=== PATIENT | female | born 1955 | race Caucasian/White ===

== ENCOUNTER 2016-08-10 07:42 | Emergency (ER) | payer OTHER ==
[2016-08-10 07:57] VITALS: PULSE 77; RESP 20; TEMP 98.8
[2016-08-10] MEDS ORDERED: IPRATROPIUM/ALBUTEROL 3 ML DEYVIAL IH ONE ×2 (08:04→08:17)
--- NOTE | 2016-08-10 08:05 | UCPHY ---
H & P Time Seen by Provider: 08/10/16 07:46 Patient Type: Established HPI/ROS: This patient presents chief complaint of a cough which she has had that intermittently for approximately 6 weeks but over the past 2 or 3 days in his been much worse. She has had chest pain only when coughing but does feel that she is short of breath and has been wheezing. Her only other symptom is a runny nose although earlier it was more congested. She denies fever, sore throat, ear pain, headache or myalgias. Smoking Status: Never smoked Physical Exam: This is a well-developed well-nourished female who is in no acute distress. She is alert, appropriate and has normal mental status. GENERAL: Well-appearing, well-nourished and in no acute distress. HEAD: Atraumatic, normocephalic. EYES: sclera anicteric, conjunctiva are normal. ENT: TMs normal, nares patent, oropharynx clear without exudates. Moist mucous membranes. NECK: Normal range of motion, supple without lymphadenopathy or JVD. LUNGS: The patient is in no respiratory distress but there are expiratory wheezes present and also the expiratory phase of respiration is prolonged. Rhonchi are also present. HEART: Regular rate and rhythm EXTREMITIES: Normal range of motion, NEUROLOGICAL: Cranial nerves II through XII grossly intact. Normal speech, normal gait. PSYCH: Normal mood, normal affect. SKIN: Warm, dry, normal turgor, no visible rashes or lesions. Constitutional: Initial Vital Signs Temperature (C) 37.1 C 08/10/16 07:53 Heart Rate 77 08/10/16 07:53 Respiratory Rate 20 08/10/16 07:53 Blood Pressure 115/67 08/10/16 07:53 O2 Sat (%) 95 08/10/16 07:53 O2 Delivery Mode Room Air Allergies/Adverse Reactions: No Known Allergies Allergy (Verified 11/20/13 08:12) Home Medications: Medication Instructions Recorded Albuterol [Albuterol HFA 8 gm] 2 puffs IH QID #1 mdi 08/10/16 predniSONE 20 mg PO DAILY #10 tab 08/10/16 Medical Decision Making ED Course/Re-evaluation: The patient was given a DuoNeb in afterwards felt that her breathing was easier but the cough continued. Re-examination revealed continued rhonchi and wheezes. The DuoNeb was repeated and the patient was given 60 mg of prednisone orally after which she was feeling generally improved although tremulous. Re- examination reveals significant edema increase in the wheezing however the rhonchi persisted. Differential Diagnosis: I believe that this patient has acute bronchitis and that antibiotics are not indicated at this time. I feel that the continued use of albuterol associated with the prednisone should help this patient considerably. I find no evidence of pneumonia or other bacterial illness. - Data Points Medications Given: Discontinued Medications Albuterol/Ipratropium (Duoneb) 3 ml IH EDNOW ONE Stop: 08/10/16 08:05 Last Admin: 08/10/16 08:10 Dose: 3 ml Albuterol/Ipratropium (Duoneb) 3 ml IH EDNOW ONE Stop: 08/10/16 08:18 Last Admin: 08/10/16 08:25 Dose: 3 ml Prednisone (Prednisone) 60 mg PO EDNOW ONE Stop: 08/10/16 08:18 Last Admin: 08/10/16 08:23 Dose: 60 mg Departure - Departure Disposition: Home, Routine, Self-Care Clinical Impression: Acute bronchiolitis with bronchospasm Condition: Good Instructions: Acute Bronchitis (ED), How to Use a Nebulizer (ED), Bronchospasm (ED) Additional Instructions: If your symptoms have not improved in 4 or 5 days you should be re-evaluated. If the breathing becomes worse you should be seen right away. Fever would be cause for concern. Adult Pain & Fever Control: We recommend Acetaminophen (Tylenol) and Ibuprofen (Motrin, Advil) for pain and fever control. When fever is high or pain severe, both drugs can be used at the same time, but at different intervals. Please note the time differences. Your dose is: Acetaminophen [650]mg every 4 to 6 hours ibuprofen [600]mg every [6] hours with food OR naproxen Sodium (Aleve) [440]mg every 12 hours. Note: do not take Acetaminophen with Hydrocodone (Vicodin, Lortab) or Oxycodone (Percocet). These medications also contain Acetaminophen. No more than 3000 mg of Acetaminophen should be taken in 24 hours (for an adult) . The maximal dose of ibuprofen that it is safe in a 24-hour period is 2400 mg. You may take 400 mg every 4 hours, 600 mg every 6 hours or 800 mg every 8 hours safely. Try a nasal decongestant spray such as Afrin. Referrals: Abbey Perez MD [Primary Care Provider] - As per Instructions Prescriptions: Albuterol [Albuterol HFA 8 gm] 2 puffs IH QID #1 mdi predniSONE 20 mg PO DAILY #10 tab - PQRS PQRS Measurement: Not applicable
[2016-08-10] MEDS ORDERED: predniSONE 20 MG TAB PO ONE (08:17)
[2016-08-10 08:43] VITALS: BP 114/70; O2SAT 98
== END 2016-08-10 08:45 | disposition home or self-care (01) ==
LOC: CED 07:42
DX: J20.9 Acute bronchitis, unspecified (principal)
CPT/HCPCS: 99214-PO; G0463-PO

== ENCOUNTER → 2017-01-14 | Outpatient (CLI) | payer OTHER | LOC: FIMAGING 08:57 | PROVIDERS: ATTEND Family Medicine | DX: Z12.31 Encounter for screening mammogram for malignant neoplasm of breast (principal) | CPT/HCPCS: G0202 ==

== ENCOUNTER 2017-10-13 07:43 | Inpatient (IN) | payer OTHER ==
[~2017-10-13 07:43] MED LIST: BUPI/epINEPH/KETOROLAC IU ONE; NS IV ONE; POVIDONE-IODINE 20 ML in SODIUM CL IRRIG SOLUTION 500 ML IRR ONE; ROPIVACAINE 0.2% 80 MG, EPINEPHrine 0.2 MG, KETOROLAC TROMETHAMINE 30 MG in SYRINGE 0 ML IU ONE; TRANEXAMIC ACID IV ONE
[2017-10-13] MEDS ORDERED: DEXAMETHASONE 4 MG/ML VIAL IVP ONE (07:51)
[2017-10-13] MEDS ORDERED: ACETAMINOPHEN 325 MG TAB PO ONE (07:51)
[2017-10-13] MEDS ORDERED: ONDANSETRON 4 MG/2 ML VIAL IVP ONE (07:51)
[2017-10-13] MEDS ORDERED: GABAPENTIN 300 MG CAP PO ONE (07:51)
[2017-10-13] MEDS ORDERED: FAMOTIDINE 20 MG TAB PO ONE (07:51)
[2017-10-13] MEDS ORDERED: ceFAZolin 2 GM/SWFI 2 GM/20 ML SYR IVP ONE (07:51)
[2017-10-13] MEDS ORDERED: LIDOCAINE 1% 2 ML INJ ID PRN (07:52)
[2017-10-13] MEDS ORDERED: LR 1,000 ML IV ONE (07:52)
--- NOTE | 2017-10-13 08:56 | PDHPUP ---
History & Physical Update H&P update statement: This history and physical update is based on an assessment of the patient which was completed after admission or registration (within 24 hours), but prior to the surgery/procedure. H&P update: H&P reviewed & patient examined
[2017-10-13] MEDS ORDERED: ceFAZolin 1 GM/5 ML SYR ONE (09:17)
[2017-10-13] MEDS ORDERED: MIDAZOLAM 2 MG/2 ML VIAL ONE (09:27)
[2017-10-13] MEDS ORDERED: MIDAZOLAM 2 MG/2 ML VIAL IVP ONE (09:27)
[2017-10-13] MEDS ORDERED: HYDROmorphONE/DILAUDID 1 MG/ML INJ IVP PRN (09:28)
[2017-10-13] MEDS ORDERED: NALOXONE HCL 0.4 MG/ML INJ IVP PRN (09:28)
[2017-10-13] MEDS ORDERED: HYDROCODONE/APAP 5/325 TAB PO PRN (09:28)
[2017-10-13] MEDS ORDERED: ONDANSETRON 4 MG/2 ML VIAL IVP PRN ×2 (09:28→11:10)
[2017-10-13] MEDS ORDERED: OXYCODONE/APAP 5/325 TAB PO PRN (09:28)
[2017-10-13] MEDS ORDERED: fentaNYL 100 MCG/2 ML INJ IVP PRN (09:28)
[2017-10-13] MEDS ORDERED: ALBUTEROL 3 ML DEYVIAL IH PRN (09:28)
[2017-10-13] MEDS ORDERED: ACETAMINOPHEN 500 MG TAB PO PRN (09:28)
[2017-10-13] MEDS ORDERED: DEXAMETHASONE 4 MG/ML VIAL IVP PRN (09:28)
[2017-10-13] MEDS ORDERED: PROPOFOL/EMULSION 500 MG/50 ML BOTTLE IV ONE (09:30)
[2017-10-13] MEDS ORDERED: PROPOFOL 200 MG/20 ML VIAL ONE (09:45)
[2017-10-13] MEDS ORDERED: fentaNYL 100 MCG/2 ML INJ ONE (10:04)
--- NOTE | 2017-10-13 10:55 | POSTOPPROG ---
Post Op Note Date of Operation: 10/13/17 Surgeon: Rodrigo Berger Pairer Substandard: Rafael Anesthesiologist: Ramandeep Anesthesia: IV Sedation, Spinal Post-op Diagnosis: Left hip arthritis Procedure: Left total hip arthroplasty Inf/Abcess present in the surg proc area at time of surgery?: No EBL: 100-500
[2017-10-13] MEDS ORDERED: POLYETHYLENE GLYCOL 3350 17 GM PKT PO PRN (11:10)
[2017-10-13] MEDS ORDERED: PROMETHAZINE HCL 25 MG/ML INJ IVP PRN (11:10)
[2017-10-13] MEDS ORDERED: DIPHENOXYLATE/ATROPINE LOMOTIL 1 TAB PO PRN (11:10)
[2017-10-13] MEDS ORDERED: traMADol 50 MG TAB PO PRN (11:10)
[2017-10-13] MEDS ORDERED: BISACODYL 10 MG SUPP PR PRN (11:10)
[2017-10-13] MEDS ORDERED: MAGNESIUM HYDROXIDE 30 ML UDCUP PO PRN (11:10)
[2017-10-13] MEDS ORDERED: METOCLOPRAMIDE 10 MG/2 ML VIAL IVP PRN (11:10)
[2017-10-13] MEDS ORDERED: LACTULOSE 20 GM/30 ML UDCUP PO PRN (11:10)
[2017-10-13] MEDS ORDERED: TEMAZEPAM 15 MG CAP PO PRN (11:10)
[2017-10-13] MEDS ORDERED: PROMETHAZINE HCL 25 MG SUPPR PR PRN (11:10)
[2017-10-13] MEDS ORDERED: oxyCODONE IR 5 MG TAB PO PRN (11:10)
[2017-10-13] MEDS ORDERED: KETOROLAC 30 MG/1 ML SDV IVP PRN (11:10)
[2017-10-13] MEDS ORDERED: ONDANSETRON DISINTEGRATING 4 MG TAB PO PRN (11:10)
[2017-10-13] MEDS ORDERED: NS 500 ML IV PRN (11:10)
[2017-10-13] MEDS ORDERED: CYCLOBENZAPRINE 10 MG TAB PO PRN (11:10)
[2017-10-13] MEDS ORDERED: diphenhydrAMINE 25 MG CAP PO PRN (11:10)
--- NOTE | 2017-10-13 11:14 | POSTANESTH ---
Post Anesthetic Evaluation Cardiovascular Status: Normal, Stable Respiratory Status: Normal, Stable Level of Consciousness/Mental Status: Mildly Sleepy, Arousable Pain Control: Adequate, Prn Tx Ordered Nausea/Vomiting Control: Adequate, Prn Tx Ordered Complications Possibly Related to Anesthesia: None Noted
--- NOTE | 2017-10-13 11:15 | PDANEPAE ---
ANE History of Present Illness Left JAGRUTI ANE Past Medical History - Cardiovascular History Hx Hypertension: No Hx Arrhythmias: No Hx Chest Pain: No Hx Coronary Artery / Peripheral Vascular Disease: No Hx CHF / Valvular Disease: No Hx Palpitations: No - Pulmonary History Hx COPD: No Hx Asthma/Reactive Airway Disease: No Hx Recent Upper Respiratory Infection: No Hx Oxygen in Use at Home: No Hx Sleep Apnea: No Sleep Apnea Screening Result - Last Documented: Negative Pulmonary History Comment: EXERCISE INDUCED ASTHMA DOES NOT CURRENTLY USE INHALER - Neurologic History Hx Cerebrovascular Accident: No Hx Seizures: No Hx Dementia: No - Endocrine History Hx Diabetes: No - Renal History Hx Renal Disorders: No - Liver History Hx Hepatic Disorders: No - Neurological & Psychiatric Hx Hx Neurological and Psychiatric Disorders: No - Cancer History Hx Cancer: No - Congenital Disorder History Hx Congenital Disorders: No - GI History Hx Gastrointestinal Disorders: No - Other Health History Other Health History: OSTEOARTHRITIS - Chronic Pain History Chronic Pain: Yes (LT HIP) - Surgical History Prior Surgeries: ROSI BREAST AUGMENTATION ANE Review of Systems Review of Systems: - Exercise capacity METS (RN): 6 METS ANE Patient History - Allergies Allergies/Adverse Reactions: No Known Allergies Allergy (Verified 11/20/13 08:12) - Home Medications Home Medications: Herbals/Supplements -Info Only DAILY 09/24/17 [Last Taken 1 Week Ago ~10/06/17] Ibuprofen PRN 09/24/17 [Last Taken 2 Weeks Ago ~09/29/17] - NPO status NPO Since - Liquids (Date): 10/13/17 NPO Since - Liquids (Time): 05:30 NPO Since - Solids (Date): 10/12/17 NPO Since - Solids (Time): 18:30 - Smoking Hx Smoking Status: Never smoked ANE Labs/Vital Signs - Vital Signs Blood Pressure: 118/85 Heart Rate: 67 Respiratory Rate: 14 O2 Sat (%): 97 Height: 172.72 cm Weight: 62.596 kg ANE Physical Exam - Airway Neck exam: FROM Mallampati Score: Class 2 Mouth exam: normal dental/mouth exam - Pulmonary Pulmonary: clear to auscultation - Cardiovascular Cardiovascular: regular rate and rhythym - ASA Status ASA Status: I ANE Anesthesia Plan Anesthesia Plan: GA w LMA
[2017-10-13] MEDS ORDERED: LR 1,000 ML IV SCH (11:30)
--- NOTE | 2017-10-13 11:49 | GOP ---
[f rep st] OPERATIVE REPORT DATE OF OPERATION: 10/13/2017 SURGEON: Rodrigo Berger MD UNDERCOLLAR MAKER: 1. Filipe Hansen CFA. 2. All Barbour, PAC. ANESTHESIA: A combination of Marcaine, spinal, and IV sedation. ANESTHESIOLOGIST: Matthew Sabillon DO. PREOPERATIVE DIAGNOSIS: Left hip severe degenerative arthritis. POSTOPERATIVE DIAGNOSIS: Left hip severe degenerative arthritis. PROCEDURE PERFORMED: Left total hip arthroplasty, ceramic femoral head on highly cross-linked polyet hylene cup liner. FINDINGS: ESTIMATED BLOOD LOSS: About 300 mL. The sponge and needle count were correct on 2 occasions. I used a Central Tritanium hemispherical solid-backed acetabular shell with an outside diameter of 52 mm. The liner was a 10-degree lipped Isaias X3 highly cross-linked liner with an inside diameter o f 32 mm. The femoral component was a high offset Accolade II stem in a size 5 and press-fit. The fe moral head was a Isaias Biolox Delta ceramic head with a +4 mm neck length and a [address] Filipe Hansen and Kendrick Barbour acted as surgical assistants. Their assistance was a medical necess ity for safe completion of the procedure. DESCRIPTION OF PROCEDURE: The patient was given 2 g of IV Ancef preoperatively within 60 minutes of surgery. She also received IV tranexamic acid at a dose of 20 mg/kg. She was placed on the operatin g room table and given spinal anesthesia with Marcaine by Dr. Sabillon. She was then placed supine and given IV sedation. A Billingsley catheter was not used. She wore a TAMIA stocking and SCD on the nonoperati ve leg. She was rolled to the right lateral decubitus position. The position was secured with the p egboard table attachment. I used an axillary roll and all pressure points were carefully padded. I was careful to lock her pelvis in a rigid vertical position. Her perineum was isolated with plastic adhesive drapes. Her left hip and left lower extremity were prepped with ChloraPrep. They were drap ed free using sterile sheets, stockinette, and Ioban plastic adhesive drapes. The World Health Organization time-out was performed to verify the correct surgical side and site and the correct patient identity. The Bishop time-out was also performed. I made a 4- to 4-1/2-inch straight oblique posterolateral hip skin incision. The subcutaneous tissue s were sharply divided, and hemostasis was obtained using electrocautery. The fascia che was identi fied and split along the axis of its fibers. I curved posteriorly and proximally, and split the fasc ia of gluteus lorrie, and bluntly split the muscle fibers in line with their orientation. The Mónica pineda self-retaining retractor was inserted. Her sciatic nerve was located, partially exposed, and pro tected throughout the procedure. The external rotators and the posterior hip capsule were divided as separate layers at the base of the femoral neck, tagged, and reflected posteriorly. A smooth 1/8-in ch Steinmann pin was inserted vertically into the ilium, superior to the acetabulum. A 1/8-inch dril l bit was inserted vertically into the greater trochanter and parallel to the first pin. The distanc e between the 2 was measured for leg length reference. Her femoral head was dislocated posteriorly. Severe degenerative changes were present on the femoral head. Her femoral neck was osteotomized at the appropriate level and inclination. I was careful to preserve all the posterior capsule and most of the anterior capsule. The remnant of her damaged labrum was excised. I prepared the femur first. This allowed me to food products tester the amount of natural femoral neck anteversion. This, in turn, allowed me to later determine the correct amount of cup anteversion. She had approx imately 12 to 15 degrees of natural femoral neck anteversion. The canal was opened laterally with a box chisel. I used the power starter reamer and then hand broached sequentially up to a size 5 Accol evon II stem. The size 5 broach was used as a trial stem. I was careful to lateralize adequately. Appropriate retractors were inserted to expose the acetabulum. The acetabulum was reamed sequentiall y up to 51 mm. I selected a 52 mm Isaias Tritanium solid-backed hemispherical shell. This was yamila ed securely into place in a proper degree of inclination and anteversion. I used the transverse acet abular ligament and other acetabular bony landmarks to help me properly orient the cup. I did not th ink supplemental screw fixation was necessary. I inserted a screw-in metal dome hole plug. I performed a series of trial reductions to determine length and stability. I concluded that the siz e 5 high offset stem with a +4 mm neck and a 32 mm head with a 10-degree lipped liner gave me the pro per combination of appropriate length and good anterior and posterior stability. The 10-degree lipped Central X3 highly cross-linked liner was inserted and tapped securely into place . The Isaias Accolade II stem and high offset in size 5 was inserted press-fit and was very tight. I did one final trial reduction and confirmed that the +4 mm neck length with a 32 mm head was the p lizandro combination. The Central Biolox Delta ceramic head with an outside diameter 32 mm and a neck l ength of +4 mm was tapped securely onto the clean trunnion. The acetabulum was irrigated and cleaned , and the hip was reduced one final time. She had excellent anterior and posterior stability and mar ropriate length. 40 mL of the joint anesthetic cocktail was injected into the capsule, the deep musculature, and the s ubcutaneous tissues along the skin edges. The joint was thoroughly irrigated one final time with a d ilute Betadine solution. Her sciatic nerve was reinspected and looked unharmed. The external rotato rs and the posterior hip capsule were repaired in separate layers with #2 FiberWire sutures through d rill holes in the greater trochanter. The fascia che was closed first with 2 [id number] #2 Fib erWire sutures, followed by a running #2 barbed Ethicon Stratafix PDO suture. The subcutaneous tissu es were closed with a running 0 barbed Ethicon Stratafix Monoderm suture. The skin was closed with a running 3-0 barbed Ethicon Stratafix Monoderm subcuticular suture. The skin edges were reapproximat ed and sealed with Dermabond glue. The wound was covered with a large piece of Mepilex waterproof dr ceja. The Mepilex sacral dressing was reapplied at the end of the procedure. A long-leg TAMIA stocking and SCD were applied to her left lower extremity. She wore a stocking and SC D on the opposite leg during the procedure. An abduction pillow was placed between her knees. She w as awakened from anesthesia and rolled to the supine position on her [facility]. She was taken to PACU in satisfactory condition. There were no recognized intraoperative complications. /[id number]/MODL
[2017-10-13 13:00] VITALS: RESP 16
--- NOTE | 2017-10-13 13:03 | PDMN ---
Medical Necessity Medical necessity: S560 hip arthroplasty A-3 days INPT only list : L JAGRUTI
[2017-10-13] MEDS: ACETAMINOPHEN 325 MG TAB PO SCH ×3 (13:24→23:29)
[2017-10-13] MEDS ORDERED: ceFAZolin 2 GM/DEXTROSE 100 ML IV SCH (14:00)
[2017-10-13] MEDS: ceFAZolin 2 GM/SWFI 2 GM/20 ML SYR IVP SCH (18:00)
[2017-10-13] MEDS: TRANEXAMIC ACID 650 MG TAB PO SCH (18:00)
[2017-10-13] MEDS: ASPIRIN 325 MG TAB PO SCH (21:47)
[2017-10-13] MEDS: FAMOTIDINE 20 MG TAB PO SCH (21:47)
[2017-10-13] MEDS: SENNOSIDES/DOCUSATE SODIUM TAB PO SCH (23:50)
[2017-10-14] MEDS: TRANEXAMIC ACID 650 MG TAB PO SCH ×2 (02:12→08:19)
[2017-10-14] MEDS: ceFAZolin 2 GM/SWFI 2 GM/20 ML SYR IVP SCH (02:12)
[2017-10-14 04:54] VITALS: O2SAT 95
[2017-10-14] MEDS: ACETAMINOPHEN 325 MG TAB PO SCH (05:16)
--- NOTE | 2017-10-14 07:29 | SOAPPROG ---
SOAP Progress Note Assessment/Plan: Assessment: Afebrile. Awake and alert. Min pain. Up and walking in room. Dsg is dry. H/H is good. Sciatic intact. Films look good. Plan: Up with PT. DC today. OP PT 10/14/17 07:28 Objective: Vital Signs Temp Pulse Resp BP Pulse Ox 36.9 C 69 16 94/60 L 95 10/14/17 04:00 10/14/17 05:17 10/14/17 04:00 10/14/17 05:17 10/14/17 04:00 Laboratory Results 10/14/17 05:32 10/13/17 10/14/17 10/15/17 05:59 05:59 05:59 Intake Total 1345 Output Total 2450 Balance -1105 ICD10 Worksheet Patient Problems: Problems Problem Status Onset Osteoarthritis of left hip Acute
[2017-10-14 07:44] VITALS: BP 104/59; PULSE 63; TEMP 98.3
--- NOTE | 2017-10-14 07:49 | GDS ---
[f rep st] DISCHARGE SUMMARY ADMISSION DIAGNOSIS: Left hip severe degenerative arthritis. DISCHARGE DIAGNOSIS: Left hip severe degenerative arthritis. OPERATION PERFORMED: 10/13/2017, a left total hip arthroplasty, ceramic femoral head on highly cross -linked polyethylene cup liner. POSTOPERATIVE COMPLICATIONS: None. CONDITION ON DISCHARGE: Improved. DESCRIPTION OF HOSPITAL COURSE: The patient was admitted to the hospital on the morning of surgery. Her admission CBC was normal. The same day, under a combination of Marcaine, spinal, and IV sedatio n, she underwent a left total hip arthroplasty. Postoperatively, she was treated with multimodal DVT prophylaxis, including aspirin. On the first postoperative day, her hemoglobin and hematocrit were 10.8 and 31.7. She was seen by Physical Therapy and made rapid progress with ambulation and stairs. By the time of discharge, she was afebrile, her wound was dry and she was independent walking with a walker. DISPOSITION: The patient discharged to her home. Her daughter will be staying with her for assistan . She may progress to full weightbearing on the left as tolerated. Use TAMIA stockings for 1 week. Use an abduction pillow in bed for 3 weeks. Continue aspirin 325 mg p.o. daily for 21 days. Contin ue Celebrex for 21 days. She will go to outpatient physical therapy in my office next week. I will see her back in the office on November 04, 2017. If there are any problems, she is to call me at the off ice. /[id number]/MODL
[2017-10-14] MEDS: ASPIRIN 325 MG TAB PO SCH (08:18)
[2017-10-14] MEDS: FAMOTIDINE 20 MG TAB PO SCH (08:18)
[2017-10-14] MEDS: SENNOSIDES/DOCUSATE SODIUM TAB PO SCH (08:19)
--- NOTE | 2017-10-14 11:02 | ASDISCHSUM ---
Discharge Information Plan Status:Home with No Needs Medically Cleared to Leave: Discharge Date:10/14/2017 10:37 AM CM D/C Disposition: ADT D/C Disposition:Home, Routine, Self-Care Projected Discharge Date:10/14/2017 10:37 AM Transportation at D/C: Discharge Delay Reason: Follow-Up Date:10/14/2017 10:37 AM Discharge Slot: Final Diagnosis: Placement Information Patient Contact Information Contact Name:FACUNDO Relationship:Daughter Address: Work Phone: City: [facility] Phone: State/[place] Code: Email: Financial Information Financial Class:HMO and PPO Plans Primary Plan Desc:[employer] Primary Plan Number:[id number] Secondary Plan Desc: Secondary Plan Number: Assessment Information [facility] CM Progress Note CM Note CM Note Notes: Pt s/p L JAGRUTI, PT rec [facility]. Pt to follow up with outpatient PT per MD rec. Pt dghtr to stay w her for several days after d/c. Pt medically stable for d/c. No CM d/c needs identified. Date Signed: 10/14/2017 11:01 AM Electronically Signed By:SHIELA Sanders Intervention Information
== END 2017-10-14 10:37 | disposition home or self-care (01) | DRG 470 ==
LOC: F3N 07:43
PROVIDERS: ADMIT Orthopaedic Surgery; ATTEND Orthopaedic Surgery
PROC: 0SRB04A Replacement of Left Hip Joint with Ceramic on Polyethylene Synthetic Substitute, Uncemented, Open Approach (ICD-10-PCS; principal; 2017-10-13 09:15)
DX: M16.12 Unilateral primary osteoarthritis, left hip (principal)
CPT/HCPCS: 97116-GP; 97161-GP; 97165-GO; J0171; J0690; J1100; J1885; J2250; J2405; J2704; J3010

== ENCOUNTER 2017-11-02 09:01 | Observation (INO) | payer OTHER ==
--- NOTE | 2017-11-01 12:08 | GHP ---
[f rep st] PREOP HISTORY AND PHYSICAL Dr. Berger dictating the preoperative admission history and physical on this patient. It is really an H and P update. She will be in outpatient on Wednesday. PROBLEM: Status post left total hip arthroplasty with 1 dislocation. HISTORY OF PRESENT ILLNESS: The patient is a 62-year-old woman admitted for a revision of the acetabular component of her left total hip arthroplasty. I did her original total hip replacement on October 13, 2017. On October 23, while sitting, she sustained a posterior dislocation. She is admitted for revision of the acetabular component. MEDICAL HISTORY: Overall, she is in excellent general health. CURRENT MEDICATIONS: None. DRUG ALLERGIES: None. PHYSICAL EXAMINATION: HEART: Regular rhythm. No murmurs. LUNGS: Clear. EXTREMITIES: Pertinent findings limited to her left hip. Her wound is healed. No residual swelling. There has not been any other change in her health in the last 2 weeks. For other details, please refer to her original admission history and physical from October 13, 2017. The surgery has been described to her. I am going to revise her acetabular component and add a little more anteversion. I am also going to use a slightly longer femoral neck. The surgery has been described to her, including the risks, complications, expectations, and recovery time. She understands that there is a small risk of dislocation, infection, and sciatic nerve injury. She also understands that the surgery may not last the rest of her life and she might require revision surgery in the future. All her questions have been answered, and she consents to surgery. /[id number]/MODL MTDD
[~2017-11-02 09:01] MED LIST changes: +ceFAZolin 1 GM/5 ML SYR ONE
[2017-11-02] MEDS ORDERED: ceFAZolin 2 GM/SWFI 2 GM/20 ML SYR IVP ONE (09:19)
[2017-11-02] MEDS ORDERED: ONDANSETRON 4 MG/2 ML VIAL IVP ONE (09:19)
[2017-11-02] MEDS ORDERED: FAMOTIDINE 20 MG TAB PO ONE (09:19)
[2017-11-02] MEDS ORDERED: ACETAMINOPHEN 325 MG TAB PO ONE (09:19)
[2017-11-02] MEDS ORDERED: GABAPENTIN 300 MG CAP PO ONE (09:19)
[2017-11-02] MEDS ORDERED: DEXAMETHASONE 4 MG/ML VIAL IVP ONE (09:19)
[2017-11-02] MEDS ORDERED: LIDOCAINE 1% 2 ML INJ ID PRN (09:20)
[2017-11-02] MEDS ORDERED: LR 1,000 ML IV ONE (09:20)
[2017-11-02] MEDS ORDERED: MIDAZOLAM 2 MG/2 ML VIAL IVP ONE (10:14)
[2017-11-02] MEDS ORDERED: MIDAZOLAM 2 MG/2 ML VIAL ONE (10:14)
--- NOTE | 2017-11-02 10:16 | PDANEPAE ---
ANE History of Present Illness s/p JAGRUTI now for revision secondary to dislocation ANE Past Medical History - Cardiovascular History Hx Hypertension: No Hx Arrhythmias: No Hx Chest Pain: No Hx Coronary Artery / Peripheral Vascular Disease: No Hx CHF / Valvular Disease: No Hx Palpitations: No - Pulmonary History Hx COPD: No Hx Asthma/Reactive Airway Disease: No Hx Recent Upper Respiratory Infection: No Hx Oxygen in Use at Home: No Hx Sleep Apnea: No Sleep Apnea Screening Result - Last Documented: Negative Pulmonary History Comment: EXERCISE INDUCED ASTHMA DOES NOT CURRENTLY USE INHALER - Neurologic History Hx Cerebrovascular Accident: No Hx Seizures: No Hx Dementia: No - Endocrine History Hx Diabetes: No - Renal History Hx Renal Disorders: No - Liver History Hx Hepatic Disorders: No - Neurological & Psychiatric Hx Hx Neurological and Psychiatric Disorders: No - Cancer History Hx Cancer: No - Congenital Disorder History Hx Congenital Disorders: No - GI History Hx Gastrointestinal Disorders: No - Other Health History Other Health History: OSTEOARTHRITIS - Chronic Pain History Chronic Pain: Yes (LT HIP) - Surgical History Prior Surgeries: L JAGRUTI 2018. ROSI BREAST AUGMENTATION ANE Review of Systems Review of Systems: - Exercise capacity METS (RN): 5 METS ANE Patient History - Allergies Allergies/Adverse Reactions: No Known Allergies Allergy (Verified 11/20/13 08:12) - Home Medications Home medications: home medication list seen and reviewed Home Medications: Herbals/Supplements -Info Only 1 ea PO DAILY 09/24/17 [Last Taken 3 Weeks Ago ~ 10/12/17] Multivitamins [Multivitamin (*)] 1 each PO DAILY 10/13/17 [Last Taken 10/29/17] Waldo-3 Fatty Acids [Fish Oil 1000 mg (*)] 1,000 mg PO DAILY 10/13/17 [Last Taken 3 Weeks Ago ~10/12/17] - NPO status NPO Since - Liquids (Date): 11/02/17 NPO Since - Liquids (Time): 06:45 NPO Since - Solids (Date): 11/01/17 NPO Since - Solids (Time): 19:00 - Anes Hx Anes Hx: no prior problems - Smoking Hx Smoking Status: Never smoked - Alcohol Use Alcohol Use: Rarely - Family Anes Hx Family Anes Hx: none Family Hx Anesthesia Complications: NA ANE Labs/Vital Signs - Vital Signs Blood Pressure: 122/66 Heart Rate: 76 Respiratory Rate: 16 O2 Sat (%): 96 Height: 172.72 cm Weight: 62.596 kg ANE Physical Exam - Airway Neck exam: FROM Mallampati Score: Class 1 Mouth exam: normal dental/mouth exam - Pulmonary Pulmonary: no respiratory distress - Cardiovascular Cardiovascular: regular rate and rhythym - ASA Status ASA Status: I ANE Anesthesia Plan Anesthesia Plan: spinal
[2017-11-02] MEDS ORDERED: fentaNYL 100 MCG/2 ML INJ ONE (10:18)
[2017-11-02] MEDS ORDERED: PROPOFOL/EMULSION 500 MG/50 ML BOTTLE IV ONE ×2 (10:19→11:08)
[2017-11-02] MEDS ORDERED: DEXAMETHASONE 4 MG/ML VIAL ONE (10:50)
[2017-11-02] MEDS ORDERED: ONDANSETRON 4 MG/2 ML VIAL ONE (10:50)
[2017-11-02] MEDS ORDERED: PHENYLEPHRINE HCL 100 MCG/ML SYR ONE (10:50)
[2017-11-02] MEDS ORDERED: oxyCODONE IR 5 MG TAB PO PRN (12:17)
[2017-11-02] MEDS ORDERED: POLYETHYLENE GLYCOL 3350 17 GM PKT PO PRN (12:17)
[2017-11-02] MEDS ORDERED: KETOROLAC 30 MG/1 ML SDV IVP PRN (12:17)
[2017-11-02] MEDS ORDERED: MAGNESIUM HYDROXIDE 30 ML UDCUP PO PRN (12:17)
[2017-11-02] MEDS ORDERED: LACTULOSE 20 GM/30 ML UDCUP PO PRN (12:17)
[2017-11-02] MEDS ORDERED: traMADol 50 MG TAB PO PRN (12:17)
[2017-11-02] MEDS ORDERED: DIPHENOXYLATE/ATROPINE LOMOTIL 1 TAB PO PRN (12:17)
[2017-11-02] MEDS ORDERED: NS 500 ML IV PRN (12:17)
[2017-11-02] MEDS ORDERED: METOCLOPRAMIDE 10 MG/2 ML VIAL IVP PRN (12:17)
[2017-11-02] MEDS ORDERED: TEMAZEPAM 15 MG CAP PO PRN (12:17)
[2017-11-02] MEDS ORDERED: PROMETHAZINE HCL 25 MG/ML INJ IVP PRN (12:17)
[2017-11-02] MEDS ORDERED: BISACODYL 10 MG SUPP PR PRN (12:17)
[2017-11-02] MEDS ORDERED: diphenhydrAMINE 25 MG CAP PO PRN (12:17)
[2017-11-02] MEDS ORDERED: ONDANSETRON DISINTEGRATING 4 MG TAB PO PRN (12:17)
[2017-11-02] MEDS ORDERED: CYCLOBENZAPRINE 10 MG TAB PO PRN (12:17)
[2017-11-02] MEDS ORDERED: ONDANSETRON 4 MG/2 ML VIAL IVP PRN (12:17)
[2017-11-02] MEDS ORDERED: PROMETHAZINE HCL 25 MG SUPPR PR PRN (12:17)
[2017-11-02] MEDS ORDERED: LR 1,000 ML IV SCH (12:30)
--- NOTE | 2017-11-02 13:10 | POSTANESTH ---
Post Anesthetic Evaluation Cardiovascular Status: Normal, Stable Respiratory Status: Normal, Stable Level of Consciousness/Mental Status: Can Participate in Eval Pain Control: Adequate, Prn Tx Ordered Nausea/Vomiting Control: Adequate, Prn Tx Ordered Complications Possibly Related to Anesthesia: None Noted
[2017-11-02 13:25] VITALS: BP 92/53; PULSE 68; RESP 16; TEMP 96.6; O2SAT 94
[2017-11-02] MEDS ORDERED: ALBUTEROL 3 ML DEYVIAL IH PRN (13:33)
[2017-11-02] MEDS ORDERED: LR 500 ML IV PRN (13:33)
[2017-11-02] MEDS ORDERED: fentaNYL 100 MCG/2 ML INJ IVP PRN (13:33)
[2017-11-02] MEDS ORDERED: NALOXONE HCL 0.4 MG/ML INJ IVP PRN (13:33)
[2017-11-02] MEDS ORDERED: ceFAZolin 2 GM/DEXTROSE 100 ML IV SCH (14:00)
[2017-11-02] MEDS ORDERED: ceFAZolin 2 GM/SWFI 2 GM/20 ML SYR IVP SCH (14:15)
--- NOTE | 2017-11-02 17:58 | GOP ---
[f rep st] OPERATIVE REPORT DATE OF OPERATION: 11/02/2017 SURGEON: Rodrigo Berger MD BRIDGE CONTRACTOR: 1. Filipe Hansen CFA. 2. All Barbour, PAC. ANESTHESIA: A combination of Marcaine, spinal, and IV sedation. 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 POSTOPERATIVE DIAGNOSIS: Three weeks status post left total hip arthroplasty with 1 episode of poste rior dislocation. PROCEDURE PERFORMED: Revision of acetabular component and femoral head of left total hip arthroplast y. FINDINGS: DESCRIPTION OF PROCEDURE: The patient was given 2 g of IV Ancef preoperatively within 60 minutes of surgery. She also received IV tranexamic acid at a dose of 20 mg/kg. [facility] and given spinal anesthesia with Marcaine by Dr. Faraz Lee. She was then placed supine and given IV sedation. A Billingsley catheter was not used. She wore a TAMIA stocking and SCD on the nonop erative leg. She was rolled to the right lateral decubitus position. The position was secured with the pegboard table attachment. Once she was locked in a vertical position, I examined her hip. I co uld reproducibly dislocate the hip posteriorly with 90 degrees of flexion and 10 degrees of adduction and about 20 or 30 degrees of internal rotation. An axillary roll was used, and all pressure points were carefully padded. Her perineum was isolated with plastic adhesive drapes. The left hip and left lower extremity were prepped with ChloraPrep. T hey were draped free using sterile sheets, stockinette, and Ioban plastic adhesive drape. The [employer] time-out was performed to verify the correct patient identity and the c orrect surgical side and site. The [place] time-out was also performed. I marked and then reopened her original 5-inch straight oblique posterolateral hip skin incision. [place] bcutaneous tissues were sharply divided, and hemostasis was obtained using electrocautery. The Strat afix subcuticular sutures were identified and removed. Her fascia che repair was identified. I spl it this through the original split. The FiberWire and the #2 PDO sutures were removed. The Charnley self-retaining retractor was inserted. Her sciatic nerve was embedded in healing scar tissue. I di d not make any attempt to isolate it. My external rotator repair and posterior hip capsule repair we re ruptured from the dislocation. There was a combined thick layer which was mostly capsule. I was able to tag this with FiberWire sutures, and later repair it. An 8-inch Steinmann pin was inserted v ertically into the ilium, superior to the acetabulum to act as a retractor. The hip was dislocated a gain. I analyzed the dislocation and felt that the cup was not anteverted an adequate amount. The 3 2 mm ceramic head was tapped off the trunnion without difficulty. I then used the anterior retractor to hold the neck portion of the femoral prosthesis anteriorly. The acetabulum was exposed. I used a quarter-inch osteotome to pry out the polyethylene liner. The dome hole screw was removed. The ex tractor was applied to the acetabular component. Using a little tapping motion to back it out along with a little jiggle circular motion to loosen it, I was able to back it out without difficulty. She retained very good medial wall of intact bone. I then went ahead and reamed 51 mm, 52 mm and 53 mm. I did a trial reduction with a 54 mm cup. I wa s trying to add about 15 degrees of anteversion. I inserted a temporary trial liner with a 10 degree lip. I then applied a 36 mm head with a +4 mm neck length trial head. The stability was checked. She now had excellent posterior stability in 90 degrees of flexion, 20 degrees of adduction, and up t o 50 degrees of internal rotation. I also checked very carefully to make sure that she did not dislo rubi anteriorly. The 54 mm Tritanium cup was inserted and tapped securely into place. I was careful to match the posi tion of the trial component. I inserted two 25 mm screws through the shell for supplemental fixation . A screw-in metal dome hole plug was also used. The acetabular fixation was very tight. The [employer] X3 10-degree lipped liner was inserted and tapped securely into place. I dialed the 10-degree ove rhang so that it was directly posterior. I did one more final trial reduction with the 36 mm head and the +4 mm neck length, and confirmed robbin t the hip was very stable. By increasing the cup size from 52 mm to 54 mm, I was able to go up to th e 36 mm head. This also gave me additional stability. I selected V40 titanium sleeve. This was inserted into the 36 mm ceramic head with a +4 mm neck estephania . The combined femoral head component was then tapped securely onto the clean trunnion. The aceta bulum was irrigated and cleaned. The hip was reduced one final time. The wound was irrigated with Betadine solution. The combined layer of capsule and external rotators was repaired through drill holes in the greater trochanter. This created a strong posterior capsular repair. The wound was thoroughly irrigated one final time with the dilute Betadine solution. Her fascia che was closed first with a couple of interrupted [id number] #2 FiberWire sutures, followed by a ru nning #2 barbed Ethicon Stratafix PDO suture. Subcutaneous tissues were closed with a running 0 shanda ed Ethicon Stratafix Monoderm suture. The skin was closed with a running 3-0 barbed Ethicon Stratafi x Monoderm subcuticular suture. The skin edges were reapproximated and sealed with Dermabond glue. The wound was covered with a large Mepilex waterproof surgical dressing. The Mepilex sacral dressing was also applied. A long-leg TAMIA stocking and SCD were applied to her left lower extremity. She wo re a stocking and SCD on the opposite leg during the procedure. An abduction pillow was placed betwe en her knees. She was awakened from anesthesia and rolled to the supine position on her [facility]. She was taken to PACU in a satisfactory condition. There were no recognized intraoperative com plications. The estimated new blood loss was about 100 mL. The sponge and needle count were correct on 2 occasio ns. I used a [place] Tritanium hemispherical cluster hole acetabular shell with an outside diameter of 54 mm. The liner was a Isaias X3 10-degree lipped highly cross-linked liner with an inside diameter o f 36 mm. The femoral component was a [place]ai[place] Biolox Delta ceramic head with a V40 titanium sleeve an d a ceramic head with an outside diameter of 36 mm and a neck length of +4 mm. Filipe Hansen and Kendrick Barbour acted as surgical assistants. Their assistance was a medical necess ity for safe completion of the procedure. /[id number]/[id number]
[2017-11-02] MEDS ORDERED: ACETAMINOPHEN 325 MG TAB PO SCH (18:00)
[2017-11-02] MEDS ORDERED: ASPIRIN 325 MG TAB PO SCH (21:00)
[2017-11-02] MEDS ORDERED: SENNOSIDES/DOCUSATE SODIUM TAB PO SCH (21:00)
[2017-11-02] MEDS ORDERED: FAMOTIDINE 20 MG TAB PO SCH (21:00)
== END 2017-11-02 16:17 | disposition home or self-care (01) ==
LOC: FSGY 09:01 → F3N 12:18
PROVIDERS: ADMIT Orthopaedic Surgery; ATTEND Orthopaedic Surgery
PROC: 0SWA0JZ Revision of Synthetic Substitute in Right Hip Joint, Acetabular Surface, Open Approach (ICD-10-PCS; principal; 2017-11-02 10:15)
DX: T84.021A Dislocation of internal left hip prosthesis, initial encounter (principal)
CPT/HCPCS: 27137; 72170; 97161; 97165; G0378; C1713; J0171; J0690; J1100; J1885; J2250; J2370; J2405; J2704; J3010